=== PATIENT | male | born 1965 ===

== ENCOUNTER 2022-10-13 07:13 | Emergency (ER) | payer OTHER, SELFPAY ==
--- NOTE | 2022-10-13 | ECG_ITS ---
Test Reason : chest pain Blood Pressure : / mmHG Vent. Rate : 072 BPM Atrial Rate : 072 BPM P-R Int : 164 ms QRS Dur : 098 ms QT Int : 412 ms P-R-T Axes : 061 030 031 degrees QTc Int : 451 ms Normal sinus rhythm Nonspecific ST abnormality Borderline ECG No previous ECGs available Referred By: Generic ED Physician Electronically Signed By:WENCESLAO LARSEN
--- NOTE | ~2022-10-13 | XR_ITS ---
EXAMINATION: XR CHEST CLINICAL INFORMATION: Chest discomfort COMPARISON: None available. TECHNIQUE: 2 views of the chest were obtained. FINDINGS: No significant abnormality is noted involving the heart, lungs, mediastinum, bony thorax or soft tissues. XR/XR chest 2V IMPRESSION: Unremarkable examination.
[2022-10-13 07:21] VITALS: BP 125/89; PULSE 79; RESP 19; TEMP 36.4; O2SAT 99; BMI 29.4
[2022-10-13 07:33] VITALS: BP 146/85; PULSE 68; RESP 10; TEMP 36.9; O2SAT 97
[2022-10-13] MEDS: Aspirin 81 MG TAB.CHEW 324 MG PO (08:13)
[2022-10-13 08:15] LABS: MANUAL DIFF FLAG NO
[2022-10-13 08:22] LABS: Basophils Absolute Auto 0.1 X10*3/uL (0.0-0.2); Basophils Percent Auto 0.9 % (0-2); Eosinophils Absolute Auto 0.1 X10*3/uL (0.0-0.4); Eosinophils Percent Auto 1.7 % (0-4); Hematocrit 43.9 % (42.0-52.0); Hemoglobin 15.4 g/dl (14.0-18.0); Imm Gran Abs Auto 0.02 X10*3/uL (0.00-0.03); Imm Gran Pct Auto 0.3 % (0.0-0.4); Lymphocytes Absolute Auto 1.3 X10*3/uL (1.2-4.9); Lymphocytes Percent Auto 19.2 % (20-40); Mean Corpuscular HGB Conc 35.1 g/dl (31.0-36.0); Mean Corpuscular Hemoglobin 30.2 pg (27.0-33.0); Mean Corpuscular Volume 86.1 fL (80.0-98.0); Mean Platelet Volume 9.1 fL (9.4-12.4); Monocytes Absolute Auto 0.4 X10*3/uL (0.1-1.2); Monocytes Percent Auto 5.7 % (2-11); Neutrophils Percent Auto 72.2 % (45-73); Platelet Count 258 X10*3/uL (160-400); Red Cell Distribution Width 12.3 % (11.0-16.0); White Blood Count 6.9 X10*3/uL (4.8-10.8)
[2022-10-13 08:51] LABS: Anion Gap 14 (12-20); Blood Urea Nitrogen 14 mg/dL (9-16); Calcium 9.6 mg/dL (8.4-10.2); Carbon Dioxide 27 mmol/L (22-29); Chloride 101 mmol/L (96-108); Creatinine Clr Calc Pharmacy 103.4; Estimated Glomerular Filt Rate > 60; Glucose Random 103 mg/dL (60-115); Potassium 3.5 mmol/L (3.3-5.1); Sodium 138 mmol/L (135-145)
[2022-10-13 09:04] LABS: Troponin-I High Sensitivity < 2.7 ng/L (<3.5-35.0)
--- NOTE | 2022-10-13 11:10 | ED_ITS ---
HPI - Chest Pain General Chief Complaint: Chest Pain Stated Complaint: Chest Pain Time Seen by Provider: 10/13/22 07:31 Source: patient Mode of arrival: ambulatory Limitations: no limitations History of Present Illness HPI narrative: 57-year-old male with history of hypertension presents with lightheadedness, unclear head, palpitations, chest discomfort. Patient recently had some adjustments made to his blood pressure medications including switching from amlodipine to nifedipine. His clonidine was transitioned from 0.1 mg to 0.3 mg at night for anxiety. Today, patient awoke with lightheadedness, slight con fusion, palpitations and some chest discomfort. The symptoms are so severe he wanted to come to the emergency department. There is no clear relieving or exacerbating features. Symptoms are still getting better. He has had much milder symptoms over the last week or 2 that he was able to manage. He takes all his blood pressure medications at night. He denies any history of diabetes. He is not on insulin therapy. He denies any recent fevers or chills. He is eating appropriately. He has had no nausea, vomiting or diarrhea. His symptoms are not positional in nature. Related Data Allergies Allergy/AdvReac Type Severity Reaction Status Date / Time No Known Allergies Allergy Verified 10/13/22 07:20 Review of Systems Review of Systems: CONSTITUTIONAL: Denies weight loss, fever and chills. HEENT: Denies changes in vision and hearing. RESPIRATORY: Denies SOB and cough. CV: Positive palpitations no CP. GI: Denies abdominal pain, nausea, vomiting and diarrhea. : Denies dysuria and urinary frequency. MSK: Denies myalgia and joint pain. SKIN: Denies rash and pruritus. NEUROLOGICAL: Denies headache and syncope. PSYCHIATRIC: Denies recent changes in mood. Denies anxiety and depression. All other ROS are negative unless in HPI PMFSH Social History Social History Advance Directives: No Advance Directives Information Provided: Yes Physical Exam Vital Signs: Vital Signs: Last Vital Signs Temp 98.4 F 10/13/22 07:33 Pulse 68 10/13/22 07:33 Resp 10 L 10/13/22 07:33 BP 146/85 H 10/13/22 07:33 Pulse Ox 97 10/13/22 07:33 O2 Del Method Room Air 10/13/22 07:33 BMI result Body Mass Index 29.4 GEN: Well developed, no acute distress, alert, oriented HEENT: Normocephalic, atraumatic, normal external ears, nose appears normal, no oropharyngeal edema or exudates Eyes: Normal to appearance Neck: Supple, no lymphadenopathy Respiratory: Talks in complete sentences, no respiratory distress, clear to auscultation bilaterally Cardiovascular: Regular rate and rhythm, no murmurs rubs or gallops Abdomen: Soft, nontender, nondistended, no guarding, no rebound Back: No CVA tenderness Extremities: No clubbing cyanosis or edema Neurologic: No focal neurologic deficits, cranial nerves 2-12 intact, strength is 5/5 bilaterally Skin: No rash Course Course Course Narrative: 57-year-old male with history of hypertension, anxiety presents with lightheadedness, palpitations, chest discomfort. At this point, I believe the medic occasions that he is currently taking in the timing of his medications are significantly affecting his symptoms. Patient reports a very labile blood pressure. On my evaluation he is mildly hypertensive, no acute distress, no focal deficits. Examination is otherwise unremarkable. Patient has already had 1 set of cardiac enzymes which is negative. There is no evidence of anemia or electrolyte abnormality. Chest x-ray reveals no acute cardiopulmonary disease. EKG shows no evidence of ischemia or cardiac dysrhythmia. I will order 2nd set of cardiac enzymes. We will make some adjustments to his antihypertensive medications. Namely, I reduced his clonidine from 0.3 mg nightly to 0.1 mg twice daily. I will recommend close follow-up with his primary care provider. Reevaluation(s) Reevaluation #1: Second set of cardiac enzymes is negative. I believe patient can be discharged at this time. Patient did understands all discharge instructions. Time: 11:46 Medications Administered Discontinued Medications Generic Name Dose Route Start Last Admin Trade Name Freq PRN Reason Stop Dose Admin Aspirin 324 mg 10/13/22 07:57 10/13/22 08:13 Aspirin 81 Mg Tab.Chew PO 10/13/22 07:58 324 mg ONCE ONE Administration Medical Decision Making Medical Decision Making [facility] Narrative: 57-year-old male with hypertension presents with lightheadedness, palpitations, chest discomfort. Symptoms started 1-2 days ago but more severe today. I evaluations unremarkable. Differential diagnosis includes electrolyte abnormality, anemia, cardiac syndrome, orthostatic hypotension, dehydration, hyp oglycemia. Plan will be to routine laboratory analysis, chest x-ray, EKG, cardiac monitoring. Will order 2 sets of cardiac enzymes to make sure he is not having an acute ischemic event. I will likely recommend close follow-up with his primary care provider as it appears to be medication related. Differential Diagnosis Differential Diagnoses: The differential diagnosis associated with the presentation includes (See above) Medication reaction, lightheadedness, palpitations Admission/Observation Consideration of admission/observation: Escalation of care including admission/observation considered Lab Data MDM Lab Attestation statement: I reviewed the patient's lab results. 10/13/22 08:12 10/13/22 08:12 Labs: Lab Results 10/13/22 10/13/22 10/13/22 Range/Units 08:12 08:12 08:12 WBC 6.9 (4.8-10.8) X10*3/uL RBC 5.10 (4.60-5.80) X10*6/uL Hgb 15.4 (14.0-18.0) g/dl Hct 43.9 (42.0-52.0) % MCV 86.1 (80.0-98.0) fL MCH 30.2 (27.0-33.0) pg MCHC 35.1 (31.0-36.0) g/dl RDW 12.3 (11.0-16.0) % Plt Count 258 (160-400) X10*3/uL MPV 9.1 L (9.4-12.4) fL Immature Gran % (Auto) 0.3 (0.0-0.4) % Neut % (Auto) 72.2 (45-73) % Lymph % (Auto) 19.2 L (20-40) % [place] % (Auto) 5.7 (2-11) % Eos % (Auto) 1.7 (0-4) % Baso % (Auto) 0.9 (0-2) % Lymph # (Auto) 1.3 (1.2-4.9) X10*3/uL [place] # (Auto) 0.4 (0.1-1.2) X10*3/uL Eos # (Auto) 0.1 (0.0-0.4) X10*3/uL Baso # (Auto) 0.1 (0.0-0.2) X10*3/uL Abs Immat Gran (auto) 0.02 (0.00-0.03) X10*3/uL Absolute Neuts (auto) 5.0 (2.0-8.3) x10*3/uL Absolute Nucleated RBC 0.000 (0.0-0.012) X10*3/uL Nucleated RBC % (auto) 0.0 (0.0-0.2) /100WBC Sodium 138 (135-145) mmol/L Potassium 3.5 (3.3-5.1) mmol/L Chloride 101 (96-108) mmol/L Carbon Dioxide 27 (22-29) mmol/L Anion Gap 14 (12-20) BUN 14 (9-16) mg/dL Creatinine 1.04 (0.5-1.4) mg/dL Estim Creat Clear Calc 103.4 Estimated GFR > 60 Random Glucose 103 (60-115) mg/dL Calcium 9.6 (8.4-10.2) mg/dL Troponin I High Sens < 2.7 (<3.5-35.0) ng/L 10/13/22 10/13/22 Range/Units 08:12 10:56 WBC (4.8-10.8) X10*3/uL RBC (4.60-5.80) X10*6/uL Hgb (14.0-18.0) g/dl Hct (42.0-52.0) % MCV (80.0-98.0) fL MCH (27.0-33.0) pg MCHC (31.0-36.0) g/dl RDW (11.0-16.0) % Plt Count (160-400) X10*3/uL MPV (9.4-12.4) fL Immature Gran % (Auto) (0.0-0.4) % Neut % (Auto) (45-73) % Lymph % (Auto) (20-40) % [place] % (Auto) (2-11) % Eos % (Auto) (0-4) % Baso % (Auto) (0-2) % Lymph # (Auto) (1.2-4.9) X10*3/uL [place] # (Auto) (0.1-1.2) X10*3/uL Eos # (Auto) (0.0-0.4) X10*3/uL Baso # (Auto) (0.0-0.2) X10*3/uL Abs Immat Gran (auto) (0.00-0.03) X10*3/uL Absolute Neuts (auto) (2.0-8.3) x10*3/uL Absolute Nucleated RBC (0.0-0.012) X10*3/uL Nucleated RBC % (auto) (0.0-0.2) /100WBC Sodium (135-145) mmol/L Potassium (3.3-5.1) mmol/L Chloride (96-108) mmol/L Carbon Dioxide (22-29) mmol/L Anion Gap (12-20) BUN (9-16) mg/dL Creatinine (0.5-1.4) mg/dL Estim Creat Clear Calc Estimated GFR Random Glucose (60-115) mg/dL Calcium (8.4-10.2) mg/dL Troponin I High Sens < 2.7 < 2.7 (<3.5-35.0) ng/L Independent Interpretation I performed an independent interpretation of an: EKG (Normal sinus rhythm heart rate 72, no acute ST elevations depressions, nonspecific T-wave changes, QTC 451 milliseconds) and Plain X-Ray (Chest: No acute cardiopulmonary disease) Prescription Management I considered prescription management with: Other (Antihypertensives) Chronic Conditions Patient?s care impacted by: Hypertension Discharge Plan Discharge Clinical Impression: Chest pain, Palpitations, Lightheadedness Patient Disposition: Home, Self-Care Instructions: Chest Pain (ED), Heart Palpitations (ED), Lightheadedness (ED) Additional Instructions: You should changer clonidine dosage to 0.1 mg twice daily. Stop the 0.3 mg at night. Consider transition off of clonidine to an SSRI or an SSNRI. This can be discussed with your primary care provider. Referrals: Physician,Unknown J [Primary Care Provider] - (Primary care provider within 1 week)
[2022-10-13 11:33] LABS: Troponin-I High Sensitivity < 2.7 ng/L (<3.5-35.0)
[2022-10-13 11:39] VITALS: BP 141/93; PULSE 56; RESP 16; O2SAT 97
[2022-10-13 11:48] VITALS: TEMP 36.9
--- NOTE | 2022-10-13 12:03 | PC.NURSE ---
denies cp or other sx upon d/c. aox4. no dizziness. d/c instructions provided- verbalizes understanding.
== END 2022-10-13 12:04 | disposition home or self-care (01) ==
PROVIDERS: Emergency Provider Emergency Medicine
DX: R07.9 Chest pain, unspecified (principal); R00.2 Palpitations; R42 Dizziness and giddiness; I10 Essential (primary) hypertension; Z79.899 Other long term (current) drug therapy
CPT/HCPCS: 36415; 71046; 80048; 84484; 85025; 93005; 99284; 99285